=== PATIENT | female | born 2000 ===

== ENCOUNTER 2019-09-09 21:30 | Inpatient (IN) ==
[2019-09-09] MEDS ORDERED: SODIUM CHLORIDE 0.65% NA SOLN 45 ML (OCEAN) PRN (21:35)
[2019-09-09] MEDS ORDERED: ALUMINUM/MAGNESIUM SUSP 30 ML UDC PO PRN (21:35)
[2019-09-09] MEDS ORDERED: MAGNESIUM HYDROXIDE SUSP 30 ML UDC PO PRN (21:35)
[2019-09-09] MEDS ORDERED: ACETAMINOPHEN 325 MG TAB PO PRN (21:35)
[2019-09-09] MEDS ORDERED: BISMUTH SUBSALICYLATE PER ML OMNICELL CHARGE PO PRN (21:35)
[2019-09-09] MEDS ORDERED: LORazepam 1 MG TAB PO PRN (22:44)
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
[2019-09-10 12:37] LABS: Albumin Level 3.9 gm/dl (3.4-5.0); BUN Creatinine Ratio 12.1 (10-20); Calcium 8.9 mg/dl (8.5-10.1); Creatinine Clr Calc Pharmacy 118.3 ml/min; Est GFR (African American) 111.1; Est GFR (Non-African American) 95.9; Potassium 3.3 mmol/L (3.5-5.1)
[2019-09-10 12:40] LABS: Albumin Globulin Ratio 1.1 (0.9-2); Bilirubin,Total 0.6 mg/dl (0.2-1); Globulin 3.5 gm/dl (2.5-4.0); Total Protein 7.4 gm/dl (6.4-8.2)
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
== END 2019-09-12 13:14 | disposition home or self-care (01) | DRG 883 ==
LOC: 3S 21:30